=== PATIENT | female | born 1975 | race Caucasian/White ===

== ENCOUNTER 2016-09-24 19:12 | Emergency (ER) | payer MEDICARE, MEDICAID ==
[2016-09-24 19:25] VITALS: BP 117/72
--- NOTE | 2016-09-24 19:36 | EDM.PDOC ---
ED HPI GENERAL MEDICAL PROBLEM - General Chief Complaint: General Stated Complaint: R SIDE RIB PAIN Time Seen by Provider: 09/24/16 19:31 Source of Information: Reports: Patient - History of Present Illness INITIAL COMMENTS - FREE TEXT/NARRATIVE: Seen for bronchitis about 10 days ago. Treated with Zpak and inhaler. Now with right rib pain with movement. Taking Ibuprofen 600mg as needed with no improvement. Onset: Gradual Onset Date: 09/22/16 Location: Reports: Chest Quality: Reports: Stabbing Severity: Moderate Improves with: Reports: Medication Worsens with: Reports: Breathing, Movement Associated Symptoms: Reports: No Other Symptoms right upper abd muscle Pain Score (Numeric/FACES): 7 - Related Data Allergies Allergy/AdvReac Type Severity Reaction Status Date / Time sumatriptan [From Imitrex] Allergy Itching Verified 09/24/16 19:22 sumatriptan succinate Allergy Itching Verified 09/24/16 19:22 [From Imitrex] Home Meds: Home Meds Aspirin [Aspir-Low] 81 mg PO DAILY 05/07/13 [History] Benztropine [Cogentin] 1 mg PO DAILY 05/07/13 [History] Cabergoline 0.5 mg PO ASDIRECTED 05/07/13 [History] Cetirizine HCl 10 mg PO ASDIRECTED 05/07/13 [History] Dextroamphetamine/Amphetamine [Dextroamp-Amphet ER] 10 mg PO DAILY 05/07/13 [ History] Levothyroxine Sodium [Synthroid] 137 mcg PO DAILY 05/07/13 [History] Montelukast [Singulair] 10 mg PO DAILY 05/07/13 [History] Omeprazole 20 mg PO DAILY 05/07/13 [History] Perphenazine 4 mg PO BID 05/07/13 [History] Sertraline [Zoloft] 150 mg PO DAILY 05/07/13 [History] Simvastatin 20 mg PO DAILY 05/07/13 [History] metFORMIN [Glucophage XR] 500 mg PO BEDTIME 08/19/13 [History] Vancomycin [Vancocin 250 MG/5 ML Soln] 250 mg PO QID #300 ml 03/19/16 [Rx] Past Medical History Cardiovascular History: Reports: High Cholesterol Respiratory History: Reports: Asthma, Bronchitis, Recurrent Gastrointestinal History: Reports: GERD Genitourinary History: Reports: Other (See Below) Other Genitourinary History: creatinism 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 Musculoskeletal History: Reports: Other (See Below) Other Musculoskeletal History: lumbar compression fractures Psychiatric History: Reports: ADD, Bipolar, Other (See Below) Other Psychiatric History: SAD Endocrine/Metabolic History: Reports: Diabetes, Type II, Hypoparathyroidism Oncologic (Cancer) History: Reports: None - Infectious Disease History Infectious Disease History: Reports: C-Difficile - Past Surgical History Female Surgical History: Reports: Hysterectomy Social & Family History - Tobacco Use Smoking Status *Q: Never Smoker Years of Tobacco use: 17 Second Hand Smoke Exposure: No - Caffeine Use Caffeine Use: Reports: Soda - Alcohol Use Days Per Week of Alcohol Use: 0 - Recreational Drug Use Recreational Drug Use: No ED ROS GENERAL - Review of Systems Review Of Systems: See Below Constitutional: Reports: No Symptoms HEENT: Reports: No Symptoms Respiratory: Reports: No Symptoms Cardiovascular: Reports: No Symptoms Musculoskeletal: Reports: Joint Pain (right rib pain) Skin: Reports: No Symptoms ED EXAM, GENERAL - Physical Exam Exam: See Below Exam Limited By: No Limitations General Appearance: Alert, WD/WN, No Apparent Distress Ears: Normal External Exam, Normal Canal, Hearing Grossly Normal, Normal TMs Nose: Normal Inspection, Normal Mucosa, No Blood Throat/Mouth: Normal Inspection, Normal Lips, Normal Teeth, Normal Gums, Normal Oropharynx, Normal Voice, No Airway Compromise Head: Atraumatic, Normocephalic Respiratory/Chest: No Respiratory Distress, Lungs Clear, Normal Breath Sounds, No Accessory Muscle Use, Chest Non-Tender, Other (tenderness over right rib cage 5th intercostal region) Cardiovascular: Normal Peripheral Pulses, Regular Rate, Rhythm, No Edema, No Gallop, No JVD, No Murmur, No Rub Course - Vital Signs Last Recorded V/S: Last Vital Signs Temp 99.6 F 09/24/16 19:25 Pulse 93 09/24/16 19:25 Resp 18 09/24/16 19:25 BP 117/72 09/24/16 19:25 Pulse Ox 95 09/24/16 19:25 Departure - Departure Time of Disposition: 19:37 Disposition: Home, Self-Care 01 Condition: good Clinical Impression: Costochondral pain - Discharge Information Forms: ED Department Discharge Additional Instructions: Discussed diagnosis. Encouraged ice to area. May use Meloxicam 7.5mg daily as needed in place of Ibuprofen. Followup if pain persists. - Problem List & Annotations (1) Costochondral pain SNOMED Code(s): 181093025 Code(s): R07.1 - CHEST PAIN ON BREATHING Status: Acute Priority: Low Current Visit: Yes
== END 2016-09-24 19:48 | disposition home or self-care (01) ==
LOC: JP.ED 19:12
DX: R07.1 Chest pain on breathing (principal); J45.909 Unspecified asthma, uncomplicated; K21.9 Gastro-esophageal reflux disease without esophagitis; E11.9 Type 2 diabetes mellitus without complications; E20.9 Hypoparathyroidism, unspecified; Z90.710 Acquired absence of both cervix and uterus; Z79.84 Long term (current) use of oral hypoglycemic drugs; Z79.4 Long term (current) use of insulin; Z79.899 Other long term (current) drug therapy; Z88.8 Allergy status to other drugs, medicaments and biological substances; E78.00 Pure hypercholesterolemia, unspecified; Z79.82 Long term (current) use of aspirin
CPT/HCPCS: 99283

== ENCOUNTER 2018-10-12 18:25 | Emergency (ER) | payer MEDICARE, MEDICAID ==
[2018-10-12 19:09] VITALS: BP 122/87
[2018-10-12] MEDS ORDERED: Ketorolac 60 MG/2 ML SDV IM ONE (19:30)
--- NOTE | 2018-10-12 19:33 | EDM.PDOC ---
ED HPI GENERAL MEDICAL PROBLEM - General Chief Complaint: Chest Pain Stated Complaint: CHEST PAIN FOR 3 DAYS Time Seen by Provider: 10/12/18 19:30 Source of Information: Reports: Patient History Limitations: Reports: No Limitations - History of Present Illness INITIAL COMMENTS - FREE TEXT/NARRATIVE: pt has pain in her rt chest when she moves and takes a deep breath. She has not been sob. She has not had a fever or cough. She has not been coughing up any sputum. Onset: Other ( started 3 days ago. ) Duration: Hour(s): Location: Reports: Chest Associated Symptoms: Reports: Chest Pain, Other (hurts to take a deep breath. ) Chest Pain Score (Numeric/FACES): 8 - Related Data Allergies Allergy/AdvReac Type Severity Reaction Status Date / Time sumatriptan [From Imitrex] Allergy Itching Verified 09/24/16 19:22 sumatriptan succinate Allergy Itching Verified 09/24/16 19:22 [From Imitrex] Home Meds: Home Meds Aspirin [Aspir-Low] 81 mg PO DAILY 05/07/13 [History] Benztropine [Cogentin] 1 mg PO DAILY 05/07/13 [History] Dextroamphetamine/Amphetamine [Dextroamp-Amphet ER] 25 mg PO DAILY 05/07/13 [ History] Levothyroxine Sodium [Synthroid] 137 mcg PO DAILY 05/07/13 [History] Montelukast [Singulair] 10 mg PO DAILY 05/07/13 [History] Sertraline [Zoloft] 50 mg PO BIDMEALS 05/07/13 [History] Simvastatin 20 mg PO DAILY 05/07/13 [History] metFORMIN [Glucophage XR] 500 mg PO BEDTIME 08/19/13 [History] Benztropine Mesylate 1 mg PO BID 10/12/18 [History] Famotidine 40 mg PO DAILY 10/12/18 [History] Haloperidol 5 mg PO Q6H PRN 10/12/18 [History] Haloperidol 20 mg PO BID 10/12/18 [History] Lisinopril 2.5 mg PO DAILY 10/12/18 [History] Perphenazine 4 mg PO BID 10/12/18 [History] buPROPion HCl [buPROPion SR] 200 mg PO BID 10/12/18 [History] hydrOXYzine HCl [hydrOXYzine] 50 mg PO BEDTIME PRN 10/12/18 [History] Past Medical History Cardiovascular History: Reports: High Cholesterol Respiratory History: Reports: Asthma, Bronchitis, Recurrent Gastrointestinal History: Reports: GERD Genitourinary History: Reports: Other (See Below) Other Genitourinary History: creatinism 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 Musculoskeletal History: Reports: Other (See Below) Other Musculoskeletal History: lumbar compression fractures Psychiatric History: Reports: ADD, Bipolar, Other (See Below) Other Psychiatric History: SAD Endocrine/Metabolic History: Reports: Diabetes, Type II, Hypoparathyroidism Oncologic (Cancer) History: Reports: None - Infectious Disease History Infectious Disease History: Reports: C-Difficile - Past Surgical History Female Surgical History: Reports: Hysterectomy Social & Family History - Tobacco Use Smoking Status *Q: Never Smoker - Caffeine Use Caffeine Use: Reports: Soda - Recreational Drug Use Recreational Drug Use: No ED ROS GENERAL - Review of Systems Review Of Systems: See Below Constitutional: Reports: No Symptoms HEENT: Reports: No Symptoms Respiratory: Reports: No Symptoms Cardiovascular: Reports: No Symptoms Endocrine: Reports: No Symptoms GI/Abdominal: Reports: No Symptoms : Reports: No Symptoms Skin: Reports: No Symptoms ED EXAM, GENERAL - Physical Exam Exam: See Below Free Text/Narrative:: pt arrived with a history of pain in her rt chest. She hurts when she moves and she hurts when there is pressure on the rt chest in the costosternal area. Exam Limited By: No Limitations General Appearance: Alert, Moderate Distress, Other (pupils are equal and reactive. ) Ears: Normal TMs Nose: Normal Inspection Throat/Mouth: Normal Inspection Head: Atraumatic Neck: Normal Inspection Respiratory/Chest: Other (pt is not having resp difficulty She does not have a fever. She hurts in the costosternal area when she takes a deep breath. ) Cardiovascular: Regular Rate, Rhythm GI/Abdominal: Soft, Non-Tender (Female) Exam: Deferred Rectal (Female) Exam: Deferred Back Exam: Normal Inspection Extremities: Normal Inspection Neurological: Alert, Oriented, Normal Cognition Psychiatric: Normal Affect, Other (pt appears to be doing ok. ) Course - Vital Signs Last Recorded V/S: Last Vital Signs Temp 36.6 C 10/12/18 19:09 Pulse 75 10/12/18 19:09 Resp 16 10/12/18 19:09 BP 122/87 10/12/18 19:09 Pulse Ox 96 10/12/18 19:09 - Orders/Labs/Meds Labs: Laboratory Tests 10/12/18 Range/Units 19:29 WBC 9.0 (4.5-11.0) K/uL RBC 4.08 (3.30-5.50) M/uL Hgb 11.6 L D (12.0-15.0) g/dL Hct 36.1 (36.0-48.0) % MCV 89 (80-98) fL MCH 28 (27-31) pg MCHC 32 (32-36) % Plt Count 250 (150-400) K/uL Neut % (Auto) 49 (36-66) % Lymph % (Auto) 37 (24-44) % [place] % (Auto) 8 H (2-6) % Eos % (Auto) 6 H (2-4) % Baso % (Auto) 1 (0-1) % Meds: Medications Discontinued Medications Generic Name Dose Route Start Last Admin Trade Name Freq PRN Reason Stop Dose Admin Hydrocodone Bitart/Acetaminophen 1 tab 10/12/18 19:40 [place] 325-5 Mg PO 10/12/18 19:41 ONETIME ONE Ketorolac Tromethamine 60 mg 10/12/18 19:30 10/12/18 19:36 Toradol IM 10/12/18 19:31 Not Given ONETIME ONE Ketorolac Tromethamine 10 mg 10/12/18 19:39 10/12/18 19:46 Toradol PO 10/12/18 19:40 10 mg ONETIME ONE Administration - Re-Assessments/Exams Free Text/Narrative Re-Assessment/Exam: 10/12/18 20:08 pt was given torodol 10 mg po. and norco 5/325 for pain. She had a chest xray which was normal. Her wbc was normal. 10/12/18 20:08 Departure - Departure Time of Disposition: 20:09 Disposition: Home, Self-Care 01 Condition: Fair Clinical Impression: Chest wall pain - Discharge Information Referrals: Zain Waite MD [Primary Care Provider] - Forms: ED Department Discharge Care Plan Goals: moist warm packs to the rt costosternal area, torodol 10 mg q6h for pain encourage deep breathing, tylenol 625 can be used inbetween the totodol doses.
[2018-10-12] MEDS ORDERED: Ketorolac 10 MG Tab PO ONE (19:39)
[2018-10-12] MEDS ORDERED: Acetaminophen/HYDROcodone 325-5 MG Tab PO ONE (19:40)
--- NOTE | 2018-10-12 20:02 | CRLCR ---
INDICATION: Left-sided chest pain TECHNIQUE: Chest 2 views. COMPARISON: None FINDINGS: Cardiovascular and mediastinum: Heart size and vasculature are normal in caliber and appearance. Mediastinum is within normal limits. Lungs and pleural spaces: Lungs are clear. No sign of infiltrate or mass. No sign of pleural effusion. No pneumothorax. Bones and soft tissues: No significant findings. IMPRESSION: No sign of acute disease. Dictated by Kaitlin Villela MD @ Oct 12 2018 7:59PM Signed by Dr. Kaitlin Villela @ Oct 12 2018 8:00PM
== END 2018-10-12 20:39 | disposition home or self-care (01) ==
LOC: JP.ED 18:25
DX: R07.89 Other chest pain (principal); K21.9 Gastro-esophageal reflux disease without esophagitis; F31.9 Bipolar disorder, unspecified; E11.9 Type 2 diabetes mellitus without complications; Z79.899 Other long term (current) drug therapy; E20.9 Hypoparathyroidism, unspecified; Z79.82 Long term (current) use of aspirin; Z88.8 Allergy status to other drugs, medicaments and biological substances
CPT/HCPCS: 36415; 71046; 85025; 99285; A9270

== ENCOUNTER 2019-03-29 13:06 | Emergency (ER) | payer MEDICARE, MEDICAID ==
[2019-03-29 13:24] VITALS: BP 124/73; PULSE 69
[2019-03-29] MEDS ORDERED: Bisacodyl 10 MG Supp RECTAL ONE (13:57)
--- NOTE | 2019-03-29 14:00 | EDM.PDOC ---
ED HPI GENERAL MEDICAL PROBLEM - General Chief Complaint: Abdominal Pain Stated Complaint: CRAMPING IN LOWER ABD Time Seen by Provider: 03/29/19 13:58 Source of Information: Reports: Patient History Limitations: Reports: No Limitations - History of Present Illness INITIAL COMMENTS - FREE TEXT/NARRATIVE: pt is having left lower abdomanal pain. She did have a bm today but it was alot of hard stool. She is not nauseated. She has not vomited and has not had a fever. She has been strufggling with her Bms Onset: Today Duration: Hour(s): Location: Reports: Abdomen Associated Symptoms: Reports: Other (pain in the left lower abdoman. ) Abdomen Pain Score (Numeric/FACES): 8 - Related Data Allergies Allergy/AdvReac Type Severity Reaction Status Date / Time sumatriptan [From Imitrex] Allergy Itching Verified 03/29/19 13:19 sumatriptan succinate Allergy Itching Verified 03/29/19 13:19 [From Imitrex] Home Meds: Home Meds Aspirin [Aspir-Low] 81 mg PO DAILY 05/07/13 [History] Dextroamphetamine/Amphetamine [Dextroamp-Amphet ER] 25 mg PO DAILY 05/07/13 [ History] Levothyroxine Sodium [Synthroid] 137 mcg PO DAILY 05/07/13 [History] Montelukast [Singulair] 10 mg PO DAILY 05/07/13 [History] Sertraline [Zoloft] 50 mg PO BIDMEALS 05/07/13 [History] Simvastatin 20 mg PO DAILY 05/07/13 [History] metFORMIN [Glucophage XR] 500 mg PO BEDTIME 08/19/13 [History] Benztropine Mesylate 1 mg PO BID 10/12/18 [History] Famotidine 40 mg PO DAILY 10/12/18 [History] Haloperidol 5 mg PO Q6H PRN 10/12/18 [History] Haloperidol 20 mg PO BID 10/12/18 [History] Lisinopril 2.5 mg PO DAILY 10/12/18 [History] Perphenazine 4 mg PO BID 10/12/18 [History] buPROPion HCl [buPROPion SR] 200 mg PO BID 10/12/18 [History] hydrOXYzine HCl [hydrOXYzine] 50 mg PO BEDTIME PRN 10/12/18 [History] Benztropine [Cogentin] 1 mg PO BID 03/29/19 [History] Past Medical History Cardiovascular History: Reports: High Cholesterol Respiratory History: Reports: Asthma, Bronchitis, Recurrent Gastrointestinal History: Reports: GERD Genitourinary History: Reports: Other (See Below) Other Genitourinary History: creatinism 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 Musculoskeletal History: Reports: Other (See Below) Other Musculoskeletal History: lumbar compression fractures Neurological History: Reports: Migraines Psychiatric History: Reports: ADD, Bipolar, Other (See Below) Other Psychiatric History: SAD Endocrine/Metabolic History: Reports: Diabetes, Type II, Hypoparathyroidism Oncologic (Cancer) History: Reports: None - Infectious Disease History Infectious Disease History: Reports: C-Difficile - Past Surgical History Female Surgical History: Reports: Hysterectomy Social & Family History - Tobacco Use Smoking Status *Q: Former Smoker Used Tobacco, but Quit: Yes Month/Year Tobacco Last Used: 10 years - Caffeine Use Caffeine Use: Reports: Soda - Recreational Drug Use Recreational Drug Use: No ED ROS GENERAL - Review of Systems Review Of Systems: See Below Constitutional: Reports: Decreased Appetite HEENT: Reports: No Symptoms Respiratory: Reports: No Symptoms Cardiovascular: Reports: No Symptoms Endocrine: Reports: Other (history of hypothyroidism) GI/Abdominal: Reports: Abdominal Pain, Other (pt is having left lower abdomanal pain) : Reports: No Symptoms Musculoskeletal: Reports: No Symptoms Skin: Reports: No Symptoms ED EXAM, GI/ABD - Physical Exam Exam: See Below Text/Narrative:: pt had the onset of left lower abdomanal pain. She passed some very hard stool and the pain gopt bad after that. Exam Limited By: No Limitations General Appearance: Alert, Anxious, Moderate Distress Ears: Normal TMs Nose: Normal Inspection Throat/Mouth: Normal Inspection Head: Atraumatic Neck: Normal Inspection Respiratory/Chest: No Respiratory Distress Cardiovascular: Regular Rate, Rhythm GI/Abdominal Exam: Other ( tender in the left lower abdoman , not guarded. ) (Female) Exam: Deferred Rectal (Female) Exam: Other ( Pt has a large amout of soft stool present in the rectum) Back Exam: Normal Inspection Extremities: Normal Inspection Neurological: Alert, Oriented, Normal Cognition Psychiatric: Anxious Course - Vital Signs Last Recorded V/S: Last Vital Signs Temp 36.8 C 03/29/19 13:17 Pulse 69 03/29/19 13:17 Resp 16 03/29/19 13:17 BP 124/73 03/29/19 13:17 Pulse Ox 98 03/29/19 13:17 - Orders/Labs/Meds Orders: Active Orders 24 hr Category Date Time Status UA W/MICROSCOPIC [URIN] Urgent Lab 03/29/19 13:50 Ordered Labs: Laboratory Tests 03/29/19 03/29/19 03/29/19 Range/Units 13:59 13:59 13:59 WBC 6.8 (4.5-11.0) K/uL RBC 4.35 (3.30-5.50) M/uL Hgb 12.0 (12.0-15.0) g/dL Hct 37.9 (36.0-48.0) % MCV 87 (80-98) fL MCH 28 (27-31) pg MCHC 32 (32-36) % Plt Count 262 (150-400) K/uL Neut % (Auto) 53 (36-66) % Lymph % (Auto) 35 (24-44) % [place] % (Auto) 7 H (2-6) % Eos % (Auto) 5 H (2-4) % Baso % (Auto) 1 (0-1) % Sodium 133 L (140-148) mmol/L Potassium 3.3 L (3.6-5.2) mmol/L Chloride 98 L (100-108) mmol/L Carbon Dioxide 25 (21-32) mmol/L Anion Gap 13.3 (5.0-14.0) mmol/L BUN 7 D (7-18) mg/dL Creatinine 0.7 (0.6-1.0) mg/dL Est Cr Clr Drug Dosing 99.73 mL/min Estimated GFR (MDRD) > 60 (>60) Glucose 103 (74-106) mg/dL Calcium 8.7 D (8.5-10.1) mg/dL Total Bilirubin 0.3 (0.2-1.0) mg/dL AST 21 (15-37) U/L ALT 47 D (12-78) U/L Alkaline Phosphatase 87 (46-116) U/L C-Reactive Protein 0.05 (0.0-0.3) mg/dL Total Protein 7.0 (6.4-8.2) g/dL Albumin 3.4 (3.4-5.0) g/dL Globulin 3.6 H (2.3-3.5) g/dL Albumin/Globulin Ratio 0.9 L (1.2-2.2) Meds: Medications Discontinued Medications Generic Name Dose Route Start Last Admin Trade Name Geni PRN Reason Stop Dose Admin Bisacodyl 10 mg 03/29/19 13:57 03/29/19 14:05 Dulcolax RECTAL 03/29/19 13:58 10 mg ONETIME ONE Administration - Re-Assessments/Exams Free Text/Narrative Re-Assessment/Exam: 03/29/19 14:42 pt had a large soft stool after the supp. She is feeling much better. Her wbc is normal. 03/29/19 14:43 crp is not significantly elevated. Pt is feeling much better. Departure - Departure Time of Disposition: 14:36 Disposition: Home, Self-Care 01 Condition: Fair Clinical Impression: Constipation - Discharge Information Referrals: PCP,None [Primary Care Provider] - Forms: ED Department Discharge Care Plan Goals: push fluids, colace 100mg bid rtc or see regular Dr if pt has on going pain. Sepsis Event Note - Evaluation Sepsis Screening Result: No Definite Risk - Focused Exam Vital Signs: Vital Signs Temp Pulse Resp BP Pulse Ox 03/29/19 13:17 36.8 C 69 16 124/73 98 Date Exam was Performed: 03/29/19 Time Exam was Performed: 14:38 - My Orders Last 24 Hours: My Active Orders 03/29/19 13:50 UA W/MICROSCOPIC [URIN] Urgent - Assessment/Plan Last 24 Hours: My Active Orders 03/29/19 13:50 UA W/MICROSCOPIC [URIN] Urgent
== END 2019-03-29 14:51 | disposition home or self-care (01) ==
LOC: JP.ED 13:06
DX: K59.00 Constipation, unspecified (principal); J45.909 Unspecified asthma, uncomplicated; E78.00 Pure hypercholesterolemia, unspecified; E11.9 Type 2 diabetes mellitus without complications; E20.9 Hypoparathyroidism, unspecified; Z88.8 Allergy status to other drugs, medicaments and biological substances; Z79.82 Long term (current) use of aspirin; Z79.899 Other long term (current) drug therapy; Z79.890 Hormone replacement therapy; Z79.84 Long term (current) use of oral hypoglycemic drugs; Z87.891 Personal history of nicotine dependence
CPT/HCPCS: 36415; 80053; 82272; 84443; 85025; 86140; 99284; A9270

== ENCOUNTER 2020-09-27 20:01 | Emergency (ER) | payer MEDICARE, MEDICAID ==
[2020-09-27 21:12] VITALS: BP 127/74; PULSE 91
--- NOTE | 2020-09-27 21:16 | EDM.PDOC ---
ED HPI GENERAL MEDICAL PROBLEM - General Chief Complaint: ENT Problem Stated Complaint: TOOTH PAIN Time Seen by Provider: 09/27/20 21:01 Source of Information: Reports: Patient History Limitations: Reports: No Limitations - History of Present Illness INITIAL COMMENTS - FREE TEXT/NARRATIVE: Glenna is a 45-year-old female presenting to the ED for evaluation of dental pain that started approximately 90 minutes prior to arrival. Patient states that she has been seen by her dentist for this tooth previously. She was seen by her dentist a week ago and had a filling on tooth #31. She is actually complaining of pain out of tooth #17 which has 3 fillings in it. She reports increased sensitivity to eating and drinking especially cold objects. She denies any fever or chills. She has no difficulty with swallowing. The patient is accompanied by her emotional support dog. left lower jaw Pain Score (Numeric/FACES): 9 - Related Data Allergies Allergy/AdvReac Type Severity Reaction Status Date / Time sumatriptan [From Imitrex] Allergy Itching Verified 03/29/19 13:19 sumatriptan succinate Allergy Itching Verified 03/29/19 13:19 [From Imitrex] Home Meds: Home Meds Aspirin [Aspir-Low] 81 mg PO DAILY 05/07/13 [History] Dextroamphetamine/Amphetamine [Dextroamp-Amphet ER] 25 mg PO DAILY 05/07/13 [History] Levothyroxine Sodium [Synthroid] 137 mcg PO DAILY 05/07/13 [History] Montelukast [Singulair] 10 mg PO DAILY 05/07/13 [History] Sertraline [Zoloft] 50 mg PO BIDMEALS 05/07/13 [History] Simvastatin 20 mg PO DAILY 05/07/13 [History] metFORMIN [Glucophage XR] 500 mg PO BEDTIME 08/19/13 [History] Benztropine Mesylate 1 mg PO BID 10/12/18 [History] Famotidine 40 mg PO DAILY 10/12/18 [History] Perphenazine 4 mg PO BID 10/12/18 [History] buPROPion HCL [buPROPion SR] 200 mg PO BID 10/12/18 [History] haloperidoL [Haloperidol] 5 mg PO Q6H PRN 10/12/18 [History] haloperidoL [Haloperidol] 20 mg PO BID 10/12/18 [History] hydrOXYzine HCL [hydrOXYzine] 50 mg PO BEDTIME PRN 10/12/18 [History] lisinopriL [Lisinopril] 2.5 mg PO DAILY 10/12/18 [History] Benztropine [Cogentin] 1 mg PO BID 03/29/19 [History] Diclofenac Sodium [Voltaren 1% Gel] 1 applic TOP QID PRN #1 tube 11/20/19 [Rx] Past Medical History Cardiovascular History: Reports: High Cholesterol Respiratory History: Reports: Asthma, Bronchitis, Recurrent Gastrointestinal History: Reports: GERD Genitourinary History: Reports: Urinary Incontinence, Other (See Below) Other Genitourinary History: creatinism 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 left hip, knee, ankle, and foot pain. left thigh pain Neurological History: Reports: Migraines Psychiatric History: Reports: ADD, Bipolar, Other (See Below) Other Psychiatric History: SAD Endocrine/Metabolic History: Reports: Diabetes, Type II, Hypoparathyroidism Oncologic (Cancer) History: Reports: None - Infectious Disease History Infectious Disease History: Reports: C-Difficile - Past Surgical History Female Surgical History: Reports: Hysterectomy Musculoskeletal Surgical History: Reports: None Social & Family History - Caffeine Use Caffeine Use: Reports: Coffee ED ROS ENT - Review of Systems Review Of Systems: See Below Constitutional: Reports: No Symptoms HEENT: Reports: Dental Pain Respiratory: Reports: No Symptoms ED EXAM, ENT - Physical Exam Exam: See Below Exam Limited By: No Limitations General Appearance: Alert, No Apparent Distress, Anxious Mouth/Throat: Normal Inspection, Normal Gums, Normal Lips, Normal Oropharynx, Dental Pain (Tooth sensitivity tooth #17 to deep palpation. There is no gingival swelling. The patient does have several fillings on this tooth with the one on the crown likely being loose as this is the site of her pain.), Dental Tenderness. No: Dental Abcess, Dental Trauma Head: Atraumatic, Normocephalic Course - Re-Assessments/Exams Free Text/Narrative Re-Assessment/Exam: 09/27/20 21:18 Glenna has increased tooth sensitivity involving tooth #17 which has several fillings in it. There is no evidence for acute infection. There is no gingival swelling. I recommend that she follow-up with her dentist on Tuesday to have this feeling rechecked. Patient is in agreement with this plan. I recommended ibuprofen for pain control. She may use Orajel as well if the pain becomes too significant. Departure - Departure Time of Disposition: 21:19 Disposition: Home, Self-Care 01 Clinical Impression: Pain, dental - Discharge Information Referrals: Zain Waite MD [Primary Care Provider] - Care Plan Goals: I would recommend following up with your dentist on Tuesday to have the fillings and tooth #17 checked. It is likely that the one on the crown may be loose as this seems to be the source of your pain. [facility] a beautiful [facility]. - Problem List & Annotations (1) Pain, dental SNOMED Code(s): 21698168 Code(s): K08.89 - OTHER SPECIFIED DISORDERS OF TEETH AND SUPPORTING STRUCTURES Status: Acute Priority: Low Current Visit: Yes - Problem List Review Problem List Initiated/Reviewed/Updated: Yes
== END 2020-09-27 21:30 | disposition home or self-care (01) ==
LOC: JP.ED 20:01
DX: K08.89 Other specified disorders of teeth and supporting structures (principal); E78.00 Pure hypercholesterolemia, unspecified; K21.9 Gastro-esophageal reflux disease without esophagitis; E11.9 Type 2 diabetes mellitus without complications; E03.9 Hypothyroidism, unspecified; Z79.899 Other long term (current) drug therapy; Z79.82 Long term (current) use of aspirin; Z79.84 Long term (current) use of oral hypoglycemic drugs
CPT/HCPCS: 99284

== ENCOUNTER 2021-02-11 13:33 | Emergency (ER) | payer MEDICARE, MEDICAID ==
[2021-02-11 14:26] VITALS: BP 127/71; PULSE 103
--- NOTE | 2021-02-11 15:32 | EDM.PDOC ---
ED HPI GENERAL MEDICAL PROBLEM - General Chief Complaint: ENT Problem Stated Complaint: ABCESS TOOTH Time Seen by Provider: 02/11/21 15:27 Source of Information: Reports: Patient, RN Notes Reviewed History Limitations: Reports: No Limitations - History of Present Illness INITIAL COMMENTS - FREE TEXT/NARRATIVE: 45-year-old female presents emergency department day complaint of dental pain, she is scheduled to go to the oral surgeon in 2 weeks her issue is that she has had increasing pain and her upper jaw right side. She recently completed a course of Pen-Vee K no fevers Upper Oral/Mouth Pain Score (Numeric/FACES): 10 - Related Data Allergies Allergy/AdvReac Type Severity Reaction Status Date / Time sumatriptan [From Imitrex] Allergy Itching Verified 02/11/21 14:25 sumatriptan succinate Allergy Itching Verified 02/11/21 14:25 [From Imitrex] Home Meds: Home Meds Aspirin [Aspir-Low] 81 mg PO DAILY 05/07/13 [History] Dextroamphetamine/Amphetamine [Dextroamp-Amphet ER] 25 mg PO DAILY 05/07/13 [History] Levothyroxine Sodium [Synthroid] 137 mcg PO DAILY 05/07/13 [History] Montelukast [Singulair] 10 mg PO DAILY 05/07/13 [History] Sertraline [Zoloft] 50 mg PO BIDMEALS 05/07/13 [History] Simvastatin 20 mg PO DAILY 05/07/13 [History] metFORMIN [Glucophage XR] 500 mg PO BEDTIME 08/19/13 [History] Benztropine Mesylate 1 mg PO BID 10/12/18 [History] Famotidine 40 mg PO DAILY 10/12/18 [History] Perphenazine 4 mg PO BID 10/12/18 [History] buPROPion HCL [buPROPion SR] 200 mg PO BID 10/12/18 [History] haloperidoL [Haloperidol] 5 mg PO Q6H PRN 10/12/18 [History] haloperidoL [Haloperidol] 20 mg PO BID 10/12/18 [History] hydrOXYzine HCL [hydrOXYzine] 50 mg PO BEDTIME PRN 10/12/18 [History] lisinopriL [Lisinopril] 2.5 mg PO DAILY 10/12/18 [History] Benztropine [Cogentin] 1 mg PO BID 03/29/19 [History] Diclofenac Sodium [Voltaren 1% Gel] 1 applic TOP QID PRN #1 tube 11/20/19 [Rx] Past Medical History Cardiovascular History: Reports: High Cholesterol Respiratory History: Reports: Asthma, Bronchitis, Recurrent Gastrointestinal History: Reports: GERD Genitourinary History: Reports: Urinary Incontinence, Other (See Below) Other Genitourinary History: creatinism 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 left hip, knee, ankle, and foot pain. left thigh pain Neurological History: Reports: Migraines Psychiatric History: Reports: ADD, Bipolar, Other (See Below) Other Psychiatric History: SAD Endocrine/Metabolic History: Reports: Diabetes, Type II, Hypoparathyroidism Oncologic (Cancer) History: Reports: None - Infectious Disease History Infectious Disease History: Reports: C-Difficile - Past Surgical History Female Surgical History: Reports: Hysterectomy Musculoskeletal Surgical History: Reports: None Social & Family History - Family History Family Medical History: No Pertinent Family History - Tobacco Use Tobacco Use Status *Q: Former Tobacco User Used Tobacco, but Quit: Yes Month/Year Tobacco Last Used: 15 years - Caffeine Use Caffeine Use: Reports: Soda - Recreational Drug Use Recreational Drug Use: No ED ROS ENT - Review of Systems Review Of Systems: See Below Constitutional: Denies: Fever, Chills HEENT: Reports: Dental Pain ED EXAM, ENT - Physical Exam Exam: See Below Text/Narrative:: Mouth mucosa is moist and pink no erythema or exudate known soft palate tongue is midline uvula is midline dentition is poor tooth #15 is partially broken tender to the touch in that area Exam Limited By: No Limitations General Appearance: Alert, WD/WN, No Apparent Distress Course - Vital Signs Last Recorded V/S: Last Vital Signs Temp 98.7 F 02/11/21 14:25 Pulse 103 H 02/11/21 14:25 Resp 16 02/11/21 14:25 BP 127/71 02/11/21 14:25 Pulse Ox 97 02/11/21 14:25 Departure - Departure Time of Disposition: 15:31 Disposition: Home, Self-Care 01 Condition: Fair Clinical Impression: Pain, dental - Discharge Information Instructions: Dental Pain Referrals: Zain Waite MD [Primary Care Provider] - Additional Instructions: Continue to use ibuprofen for baseline pain control use the hydrocodone for breakthrough pain, please keep your follow-up appointment with your oral surgeon Sepsis Event Note (ED) - Evaluation Sepsis Screening Result: No Definite Risk - Focused Exam Vital Signs: Vital Signs Temp Pulse Resp BP Pulse Ox 02/11/21 14:25 98.7 F 103 H 16 127/71 97 - Assessment/Plan Plan: Assessment Acuity = acute Site and laterality = dental pain Etiology = dental caries Manifestations = none Location of injury = Home Lab values = none Plan Hydrocodone 5/325 1 tab p.o. 3 times daily as needed total #10 provided for pain control This note was dictated using [employer] voice recognition software please call with any questions on syntax or grammar.
== END 2021-02-11 15:53 | disposition home or self-care (01) ==
LOC: JP.ED 13:33
DX: K08.89 Other specified disorders of teeth and supporting structures (principal); E78.00 Pure hypercholesterolemia, unspecified; K21.9 Gastro-esophageal reflux disease without esophagitis; E11.9 Type 2 diabetes mellitus without complications; E03.9 Hypothyroidism, unspecified; Z87.891 Personal history of nicotine dependence; Z79.899 Other long term (current) drug therapy; Z88.8 Allergy status to other drugs, medicaments and biological substances; Z79.82 Long term (current) use of aspirin
CPT/HCPCS: 99282

== ENCOUNTER 2021-06-28 12:43 | Emergency (ER) | payer MEDICARE, MEDICAID ==
[2021-06-28 13:25] VITALS: BP 111/69; PULSE 99
[2021-06-28] MEDS ORDERED: Cyclobenzaprine 10 MG Tab PO ONE (14:16)
[2021-06-28] MEDS ORDERED: Ketorolac 30 MG/ML SDV IM ONE (14:16)
== END 2021-06-28 16:07 | disposition home or self-care (01) ==
LOC: JP.ED 12:43
DX: M54.50 Low back pain, unspecified (principal); E78.00 Pure hypercholesterolemia, unspecified; K21.9 Gastro-esophageal reflux disease without esophagitis; E11.9 Type 2 diabetes mellitus without complications; E20.9 Hypoparathyroidism, unspecified; Z79.82 Long term (current) use of aspirin; Z79.899 Other long term (current) drug therapy; Z88.8 Allergy status to other drugs, medicaments and biological substances; Z79.84 Long term (current) use of oral hypoglycemic drugs
CPT/HCPCS: 81001; 96372; 99282; 99283; A9270-GY; J1885

== ENCOUNTER 2022-04-03 16:39 | Emergency (ER) | payer MEDICARE, MEDICAID ==
[2022-04-03 16:59] VITALS: BP 145/83; PULSE 107
== END 2022-04-03 18:39 | disposition home or self-care (01) ==
LOC: JP.ED 16:39
DX: K59.01 Slow transit constipation (principal); E78.00 Pure hypercholesterolemia, unspecified; E11.9 Type 2 diabetes mellitus without complications; Z88.1 Allergy status to other antibiotic agents; Z79.82 Long term (current) use of aspirin; Z79.84 Long term (current) use of oral hypoglycemic drugs; Z90.710 Acquired absence of both cervix and uterus
CPT/HCPCS: 99283